=== PATIENT | male | born 1955 | race Caucasian/White ===

== ENCOUNTER 2017-06-18 14:17 | Inpatient (IN) | payer BC ==
[~2017-06-18] VITALS: Ht 182.9 cm; Wt 115.1 kg
[2017-06-18] VITALS (8 sets, daily range): BP systolic 113–128; BP diastolic 59–88
[2017-06-18] MEDS: HEPARIN SOD (PORCINE) 5000 UNITS/ML VIAL SC SCH ×2 (14:00→22:00)
[2017-06-18] MEDS ORDERED: NS 1,000 ML IV SCH (14:38)
[2017-06-18] MEDS ORDERED: ASPIRIN 81 MG CHEW TABLET PO ONE (14:45)
[2017-06-18 15:01] LABS: BASO % 0.4 % (0.0-1.0); EOS # 0.1 K/mm3 (0.0-0.50); EOS % 0.8 % (0.0-3.0); LARGE UNSTAINED CELL # 0.1 K/mm3 (0.0-0.4); LARGE UNSTAINED CELL % 1.2 % (0.0-4.0); LYMPH # 1.7 K/mm3 (1.5-4.5); LYMPH % 20.5 % (24.0-44.0); MEAN CORPUSCULAR HEMOGLOBIN 33.9 pg (27.0-33.0); MEAN CORPUSCULAR HGB CONC 33.9 g/dl (32.0-36.5); MEAN CORPUSCULAR VOLUME 100.2 fl (80.0-96.0); MONO # 0.5 K/mm3 (0.0-0.8); MONO % 5.9 % (0.0-5.0); NEUTROPHILS # 5.5 K/mm3 (1.8-7.7); NEUTROPHILS % 71.2 % (36.0-66.0); PLATELET COUNT, AUTOMATED 143 k/mm3 (150-450); RED CELL DISTRIBUTION WIDTH 13.5 % (11.5-14.5); WHITE BLOOD COUNT 7.8 K/mm3 (4.0-10.0)
[2017-06-18 15:05] LABS: INR 1.07
[2017-06-18 15:34] LABS: ALBUMIN 3.2 GM/DL (3.2-5.2); ALBUMIN/GLOBULIN RATIO 1.45 (1.00-1.93); BILIRUBIN,DIRECT 0.4 MG/DL (0.0-0.2); BILIRUBIN,TOTAL 1.2 MG/DL (0.2-1.0); CALCIUM LEVEL 8.2 MG/DL (8.8-10.2); CREATININE FOR GFR 1.34 MG/DL (0.70-1.30); GLOMERULAR FILTRATION RATE 57.3 (>49); POTASSIUM SERUM 4.2 MEQ/L (3.5-5.1); TOTAL PROTEIN 5.4 GM/DL (6.4-8.2)
[2017-06-18 16:14] LABS: MAGNESIUM LEVEL 2.4 MG/DL (1.8-2.4)
--- NOTE | 2017-06-18 17:05 | HPEPDOC ---
Medical History and Physical Date of Admission 06/18/17 History and Physical PRIMARY CARE PROVIDER: None ATTENDING: Dr. Yudi Oliveira CHIEF COMPLAINT: Shortness of breath HISTORY OF PRESENT ILLNESS: This is a 62-year-old male no significant past medical history has not seen a physician in over 10 years who presents to the urgent care center complaining of shortness of breath, found to have new onset atrial fibrillation with RVR HR 130s to 150s. Patient states he's been getting progressively short of breath with increased lower extremity edema over the past week. States he also has orthopnea. No PND. Patient denies chest pain/palpitations. In the ED patient was found to have atrial fibrillation with rapid ventricular rate, given a Cardizem IV followed by by mouth. His heart rate is better controlled this point. Blood pressure stable. Oxygenating well. PAST MEDICAL HISTORY: As per HPI PAST SURGICAL HISTORY: Hernia repair SOCIAL HISTORY: Occasionally smokes tobacco and drinks alcohol. Occasionally smokes marijuana. FAMILY HISTORY: M - CVA ALLERGIES: Please see below. REVIEW OF SYSTEMS: HEENT: Denies sore throat/headache CARDIOVASCULAR: Denies chest pain/palpitations RESPIRATORY: + shortness of breath. No cough GASTROINTESTINAL: denies nausea/vomiting GENITOURINARY: Denies dysuria/urinary urgency. MUSCULOSKELETAL: Denies myalgias/arthralgias NEUROLOGICAL: Denies any focal weakness HOME MEDICATIONS: Please see below. PHYSICAL EXAMINATION: Vitals: (see below) General: No acute distress, laying comfortably in bed. HEENT: Moist mucous membranes. Neck: Mild JVD. No lymphadenopathy Cardiac: Irregularly irregular, No murmurs Pulm: Diminished breath sounds at the bases b/l. No wheezing, rhonchi Abd: NT/ND + BS Ext: 2+ pitting edema BLE. No cyanosis. Distal pulses intact. LABORATORY DATA: See below. IMAGING: CXR 06/18/17 Impression: Small right pleural effusion. Borderline cardiac size. MICROBIOLOGY: Please see below. ASSESSMENT/PLAN: 1. New-onset Atrial fibrillation with rapid ventricular rate. At this point CHADSVASc is 0. Echocardiogram pending. Status post Cardizem IV and by mouth. Heart rate is controlled at this point. Recent denies any chest pain/ palpitations. We will start metoprolol pending evaluation of ejection fraction. Aspirin 325 daily for now. 2. Acute Decompensated congestive heart failure - we'll diurese with Lasix IV twice a day. Echo pending. Cardiac enzymes will be monitored. Questionable systolic versus diastolic. Consider cardiology consultation if no significant improvement by tomorrow. 3. Lower extremity edema- likely secondary to decompensated heart failure. We will rule out DVT with lower extremity ultrasound. 4. Transaminitis- no abdominal pain. We'll order abdominal ultrasound. Hepatitis panel. Will need outpatient follow-up. Trend LFTs. ? Liver congestion versus QUEEN 5. Elevated creatinine- ? Baseline as patient has not been seen by a physician in over 10 years. Continue to monitor with diuresis. 6. Prediabetes with obesity- will need weight loss counseling prior to discharge. 7. Will need outpatient sleep study to rule out obstructive sleep apnea. DVT prophylaxis- heparin subcutaneous Patient will need a PCP prior to discharge. Vital Signs Vital Signs Date Time Temp Pulse Resp B/P (MAP) Pulse Ox O2 Delivery O2 Flow Rate FiO2 06/18/17 16:17 87 94 06/18/17 16:15 110/75 (87) 06/18/17 15:01 Room Air 94 06/18/17 14:18 97.0 20 Laboratory Data Labs 24H Laboratory Tests 2 06/18/17 14:44: White Blood Count 7.8, Red Blood Count 4.72, Hemoglobin 16.0, Hematocrit 47.3, Mean Corpuscular Volume 100.2H, Mean Corpuscular Hemoglobin 33.9H, Mean Corpuscular Hemoglobin Concent 33.9, Red Cell Distribution Width 13.5, Platelet Count 143L, Neutrophils (%) (Auto) 71.2H, Lymphocytes (%) (Auto) 20.5L, Monocytes (%) (Auto) 5.9H, Eosinophils (%) (Auto) 0.8, Basophils (%) (Auto) 0.4 , Neutrophils # (Auto) 5.5, Lymphocytes # (Auto) 1.7, Monocytes # (Auto) 0.5, Eosinophils # (Auto) 0.1, Basophils # (Auto) 0.0, Large Unclassified Cells % 1.2 , Large Unclassified Cells # 0.1, Prothrombin Time 14.1, Prothromb Time International Ratio 1.07, Anion Gap 6L, Glomerular Filtration Rate 57.3, Estimated Mean Plasma Glucose 128H, Hemoglobin A1c 6.1, Calcium Level 8.2L, Magnesium Level 2.4, Aspartate Amino Transf (AST/SGOT) 53H, Alanine Aminotransferase (ALT/SGPT) 199H, Alkaline Phosphatase 63, Total Bilirubin 1.2H , Direct Bilirubin 0.4H, Total Creatine Kinase 53, Creatine Kinase MB 1.6, Creatine Kinase MB Relative Index 3.01, Troponin I 0.02, B-Type Natriuretic Peptide 251H, Total Protein 5.4L, Albumin 3.2, Albumin/Globulin Ratio 1.45, Thyroid Stimulating Hormone (TSH) 1.980 CBC/BMP Laboratory Tests 06/18/17 14:44 Red Blood Count 4.72, Mean Corpuscular Volume 100.2 H, Mean Corpuscular Hemoglobin 33.9 H, Mean Corpuscular Hemoglobin Concent 33.9, Red Cell Distribution Width 13.5, Neutrophils (%) (Auto) 71.2 H, Lymphocytes (%) (Auto) 20.5 L, Monocytes (%) (Auto) 5.9 H, Eosinophils (%) (Auto) 0.8, Basophils (%) ( Auto) 0.4, Neutrophils # (Auto) 5.5, Lymphocytes # (Auto) 1.7, Monocytes # (Auto ) 0.5, Eosinophils # (Auto) 0.1, Basophils # (Auto) 0.0 Home Medications Scheduled Aspirin (Aspirin) 325 Mg Tab, 325 MG PO DAILY Atenolol (Atenolol) 50 Mg Tab, 50 MG PO BID Furosemide (Lasix) 20 Mg Tab, 20 MG PO DAILY Simvastatin - High Dose (Zocor) 40 Mg Tab, 40 MG PO QHS Allergies Coded Allergies: No Known Allergies (Unverified , 06/18/17) AGUILA RODRIGUEZ MD Jun 18, 2017 17:05
--- NOTE | 2017-06-18 18:02 | REP ---
BILATERAL LOWER EXTREMITY DOPPLER VENOUS ULTRASOUND: Comparison: None. Clinical history: Lower extremity swelling, evaluate for DVT. Technique: The deep venous system of the bilateral lower extremities is evaluated with levi scale imaging, compression ultrasound, color imaging and duplex Doppler interrogation. Examination from the groin through the popliteal fossa into the proximal calf. Findings: There is full compressibility from the common femoral vein in the inguinal region through the popliteal vein on both sides. Color imaging confirms patency throughout the course of the deep venous system. There is respiratory variation and augmented flow at all levels. Impression: 1. No Doppler venous ultrasound evidence of DVT in the bilateral lower extremities. Signed by Luis Hanks MD 06/18/2017 05:53 P
[2017-06-18] MEDS ORDERED: METOPROLOL 5 MG/5 ML VIAL IV STA (19:25)
[2017-06-18] MEDS ORDERED: DIGOXIN INJ 0.5 MG/2 ML AMP (J1160) IV STA (19:27)
[2017-06-18] MEDS: METOPROLOL TART 25 MG TABLET PO SCH (19:48)
[2017-06-19] VITALS (7 sets, daily range): BP systolic 112–138; BP diastolic 56–95
[2017-06-19] MEDS: METOPROLOL TART 25 MG TABLET PO SCH ×2 (00:22→07:44)
[2017-06-19 05:07] LABS: MEAN CORPUSCULAR HGB CONC 32.6 g/dl (32.0-36.5); MEAN CORPUSCULAR VOLUME 101.2 fl (80.0-96.0); RED CELL DISTRIBUTION WIDTH 13.5 % (11.5-14.5); WHITE BLOOD COUNT 7.8 K/mm3 (4.0-10.0)
[2017-06-19 05:33] LABS: ALBUMIN 3.1 GM/DL (3.2-5.2); ALBUMIN/GLOBULIN RATIO 1.35 (1.00-1.93); ALKALINE PHOSPHATASE 66 U/L (45-117); ALT/SGPT 177 U/L (12-78); ANION GAP 8 MEQ/L (8-16); AST/SGOT 46 U/L (15-37); BILIRUBIN,TOTAL 1.1 MG/DL (0.2-1.0); BLOOD UREA NITROGEN 22 MG/DL (7-18); CALCIUM LEVEL 7.9 MG/DL (8.8-10.2); CARBON DIOXIDE LEVEL 25 MEQ/L (21-32); CHLORIDE LEVEL 106 MEQ/L (98-107); CREATININE FOR GFR 1.19 MG/DL (0.70-1.30); GLOMERULAR FILTRATION RATE > 60.0 (>49); GLUCOSE, FASTING 124 MG/DL (80-110); MAGNESIUM LEVEL 2.4 MG/DL (1.8-2.4); POTASSIUM SERUM 4.2 MEQ/L (3.5-5.1); SODIUM LEVEL 139 MEQ/L (136-145); TOTAL PROTEIN 5.4 GM/DL (6.4-8.2)
[2017-06-19] MEDS: HEPARIN SOD (PORCINE) 5000 UNITS/ML VIAL SC SCH ×3 (06:00→20:52)
[2017-06-19 06:49] LABS: CHOLESTEROL LEVEL 135 MG/DL (<200); TRIGLYCERIDES LEVEL 92 MG/DL (<150)
--- NOTE | 2017-06-19 07:28 | REP ---
Clinical: Shortness of breath . Comparison: 06/18/2017 . Findings: The mediastinum and cardiac silhouette are stable and within normal limits for portable technique. The lung pepe are clear without acute consolidation, obvious effusion, or pneumothorax. Skeletal structures are intact. Impression: No acute cardiopulmonary process appreciated. Previously noted small right pleural effusion not visualized by current examination. Signed by Serjio Coley MD 06/19/2017 07:20 A
[2017-06-19] MEDS: FUROSEMIDE 40 MG/4 ML VIAL (J1940) IV SCH ×3 (08:59→20:51)
[2017-06-19] MEDS: ASPIRIN 325 MG TAB PO SCH (08:59)
[2017-06-19] MEDS ORDERED: METOPROLOL TART 25 MG TABLET PO SCH (09:00)
[2017-06-19] MEDS ORDERED: ASPI325T PO (09:30)
[2017-06-19] MEDS ORDERED: ATEN50TA2 PO (09:30)
[2017-06-19] MEDS ORDERED: ZOCO40TA PO (09:30)
[2017-06-19] MEDS ORDERED: LASI20TA PO (09:31)
[2017-06-19] MEDS: ATENOLOL 50 MG TAB PO SCH ×2 (09:39→20:52)
[2017-06-19] MEDS ORDERED: LEVALBUTEROL 1.25 MG/0.5 ML CONCENTRATE NEB NEB ONE (10:00)
[2017-06-19] MEDS ORDERED: LEVALBUTEROL 1.25 MG/0.5 ML CONCENTRATE NEB INH PRN (11:00)
--- NOTE | 2017-06-19 11:22 | ECGEPIP ---
Stationary ECG Study [facility] - ED Test Date: 2017-06-18 Pat Name: JOSH AMRR Department: Room: - Gender: M Inker Machine: magdy : 1955 Requested By: ROVERTO EVANS Order Number: [id number] Reading MD: Julia Osborne Measurements Intervals [place] Rate: 81 P: [place]: 0 QRS: -14 QRSD: 105 T: -33 QT: 363 QTc: 422 Interpretive Statements ATRIAL FIBRILLATION NONSPECIFIC ST & T-WAVE ABNORMALITY ABNORMAL RHYTHM ECG LOW VOLTAGE LIMB DECREASED RATE 05/29/17 Electronically Signed On 06-19-2017 11:22:16 EDT by Julia Osborne
--- NOTE | 2017-06-19 11:30 | ECGEPIP ---
Stationary ECG Study [facility] Test Date: 2017-06-19 Pat Name: JOSH MARR Department: Room: [place] [address] Gender: M Caustic Preparer: RAMEZ : 1955 Requested By: AGUILA RODRIGUEZ Order Number: [id number] Reading MD: Jones Murrieta Measurements Intervals [place] Rate: 77 P: [place]: 0 QRS: -7 QRSD: 117 T: 2 QT: 389 QTc: 442 Interpretive Statements ATRIAL FIBRILLATION MODERATE INTRAVENTRICULAR CONDUCTION DELAY Nonspecific ST-T wave abnormalities Low QRS complex voltage in the limb leads Electronically Signed On 06-19-2017 11:30:27 EDT by Jones Murrieta
[2017-06-19] MEDS: LEVALBUTEROL 1.25 MG/0.5 ML CONCENTRATE NEB INH SCH ×4 (13:00→23:35)
--- NOTE | 2017-06-19 19:07 | ECGEPIP ---
Stationary ECG Study [facility] - ED Test Date: 2017-06-18 Pat Name: JOSH MARR Department: Room: - Gender: M Senior Consumer Insights Consultant: magdy : 1955 Requested By: Sal Reynolds Order Number: [id number] Reading MD: Sal Bazan Measurements Intervals [place] Rate: 153 P: [place]: 0 QRS: -32 QRSD: 107 T: 0 QT: 310 QTc: 495 Interpretive Statements ATRIAL FIBRILLATION WITH RAPID VENTRICULAR RESPONSE LEFT AXIS DEVIATION MODERATE INTRAVENTRICULAR CONDUCTION DELAY MINIMAL ST DEPRESSION SIMILAR TO 06/18/17 Electronically Signed On 06-19-2017 19:07:15 EDT by Sal Bazan
--- NOTE | 2017-06-19 23:04 | ECHO ---
DATE OF PROCEDURE: 06/19/2017 REFERRING PHYSICIAN: Dr. Jose See INDICATION: Heart failure, unspecified. HEIGHT: 183 cm WEIGHT: 125 kg 2D MEASUREMENTS: Aortic root: 3.5 cm Left atrium: 4.3 cm Ventricular septum: 1.19 cm Posterior wall: 1.16 cm Left ventricle diastole: 6.1 cm LVOT: 2.4 cm Inferior vena cava: 2.7 cm with less than 50% respiratory variation. DOPPLER MEASUREMENTS: Aortic valve velocity: 77.5 cm/s LVOT velocity: 57.1 cm/s LVOT VTI: 8.9 cm Very mild mitral regurgitation. Mitral deceleration time: 158 ms Moderate tricuspid regurgitation. Estimated right ventricle systolic pressure: 48 mmHg assuming a right atrial pressure of 20 mmHg based on inferior vena cava plethora with reduced respiratory variation. DESCRIPTION OF PROCEDURE: Rhythm was atrial fibrillation with controlled ventricular response. No pericardial effusion. CONCLUSIONS: 1. Mildly dilated left ventricle with normal left ventricle (LV) wall thickness. Severe global LV hypokinesis with severe reduction in overall LV systolic function. Left ventricular ejection fraction (LVEF) 20% by visual estimate. Unable to adequately assess LV diastolic function in the setting of atrial fibrillation. 2. Mild left atrial dilatation. 3. Mild global hypokinesis of the right ventricle with mild reduction in overall right ventricular (RV) systolic function. Mild right atrial dilatation. 4. Suggestive of moderate elevation of estimated right ventricle systolic pressure (48 mmHg). 5. 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 6. Moderate tricuspid regurgitation with structurally normal appearing tricuspid leaflets.
[2017-06-20 03:08] VITALS: BP 110/64
[2017-06-20] MEDS: FUROSEMIDE 40 MG/4 ML VIAL (J1940) IV SCH ×4 (03:11→20:49)
[2017-06-20] MEDS: LEVALBUTEROL 1.25 MG/0.5 ML CONCENTRATE NEB INH SCH ×6 (03:14→23:53)
[2017-06-20 05:07] LABS: MEAN CORPUSCULAR HEMOGLOBIN 34.4 pg (27.0-33.0); MEAN CORPUSCULAR HGB CONC 34.1 g/dl (32.0-36.5); MEAN CORPUSCULAR VOLUME 100.7 fl (80.0-96.0); RED CELL DISTRIBUTION WIDTH 13.5 % (11.5-14.5); WHITE BLOOD COUNT 7.4 K/mm3 (4.0-10.0)
[2017-06-20 05:22] LABS: ALBUMIN 3.3 GM/DL (3.2-5.2); ALBUMIN/GLOBULIN RATIO 1.27 (1.00-1.93); CALCIUM LEVEL 8.2 MG/DL (8.8-10.2); CREATININE FOR GFR 1.35 MG/DL (0.70-1.30); GLOMERULAR FILTRATION RATE 56.8 (>49); MAGNESIUM LEVEL 2.3 MG/DL (1.8-2.4); POTASSIUM SERUM 3.8 MEQ/L (3.5-5.1); TOTAL PROTEIN 5.9 GM/DL (6.4-8.2)
--- NOTE | 2017-06-20 05:25 | IPN ---
DATE: 06/19/2017 SUBJECTIVE: The patient is seen and examined at the bedside. Chart has been reviewed. This morning the patient complains of dyspnea on exertion, increasing lower extremity edema unchanged from yesterday. No chest pressure, pain or tightness. No palpitations, lightheadedness or dizziness. On telemetry the patient remains in atrial fibrillation. Ventricular rate ranges from 75 to 146. OBJECTIVE: VITAL SIGNS: Temperature 98.6, pulse 85, respiratory rate 18, blood pressure 112/60, 94% on room air. GENERAL: The patient is awake, alert, and oriented times three, answering questions appropriately. No respiratory distress. No use of respiratory accessory muscles. Positive jugular venous distention. LUNGS: Diminished. Bilateral crackles at the bases. HEART: S1, S2. Irregularly irregular. ABDOMEN: Obese, soft, nontender, nondistended. EXTREMITIES: 2+ pitting edema bilateral lower extremities to the sacrum. LABORATORY DATA: White count 7.8, hemoglobin 15, hematocrit 47, platelet count 147. Sodium 139, potassium 4.2, chloride 106, bicarbonate 25, BUN 22, creatinine 1.19, glucose of 124. A1c is 6.1, calcium 7.9, magnesium 2.4. Total bilirubin 1.1, AST 46, ALT 177, alkaline phosphatase 66. Total CK 31, troponin 0.02. BNP is 251. Total protein 5.4, albumin 3.1. TSH 1.9. IMAGING: Chest x-ray: No acute cardiopulmonary process. Small right pleural effusion not visualized by current examination. Venous Doppler of bilateral lower extremities shows no deep venous thrombosis (DVT). ASSESSMENT AND PLAN: This is a 62-year-old male who has not seen a physician in over 10 years, who presented to urgent care with complaints of shortness of breath, was found to have new-onset atrial fibrillation, heart rate of 150, admitted for atrial fibrillation and decompensated heart failure new onset. CURRENT ISSUES: 1. New onset atrial fibrillation with rapid ventricular response. CHADS score is one. Echocardiogram is pending. Status post intravenous (IV) Cardizem, digoxin currently and metoprolol every six hours changed to atenolol 50 twice a day and aspirin 325 daily. 2. Acute decompensated congestive heart failure (CHF) secondary to new onset atrial fibrillation. Continue diuresis, Lasix, strict intake and output, daily weights and fluid restriction. Cardiac rehabilitation. Await echocardiogram report. Check lipid panel. Start on statin. Patient will need evaluation for ischemic heart disease as outpatient with stress test or coronary angiogram. Referral to cardiology. 3. Lower extremity edema secondary to decompensated heart failure. Unknown ejection fraction. Rule out DVT by ultrasound which with both negative on both extremities. 4. Congestive hepatopathy. Abnormal liver function tests secondary to congestive heart failure, decompensated. Hepatitis serology is pending. 5. Prediabetic with obesity. Weight loss and nutrition consult. Rule out sleep apnea with sleep study as outpatient.
[2017-06-20] MEDS: HEPARIN SOD (PORCINE) 5000 UNITS/ML VIAL SC SCH ×3 (05:27→14:14)
[2017-06-20 07:25] VITALS: BP 122/82
[2017-06-20] MEDS: ASPIRIN 325 MG TAB PO SCH (09:13)
[2017-06-20] MEDS: ATENOLOL 50 MG TAB PO SCH (09:14)
[2017-06-20 12:00] VITALS: BP 130/60
[2017-06-20 16:00] VITALS: BP 118/76
[2017-06-20] MEDS ORDERED: METOPROLOL TART 25 MG TABLET PO ONE (16:45)
--- NOTE | 2017-06-20 17:06 | ECGEPIP ---
Stationary ECG Study [facility] Test Date: 2017-06-20 Pat Name: JOSH MARR Department: Room: [place] [address] Gender: M Counseling Specialist: : 1955 Requested By: STEPHANIE Ball Order Number: [id number] Reading MD: Jones Murrieta Measurements Intervals [place] Rate: 91 P: [place]: 0 QRS: -30 QRSD: 116 T: -35 QT: 358 QTc: 441 Interpretive Statements ATRIAL FIBRILLATION MODERATE INTRAVENTRICULAR CONDUCTION DELAY NONSPECIFIC ST & T-WAVE ABNORMALITY Similar to tracing done 06-19-17 Electronically Signed On 06-20-2017 17:06:31 EDT by Jones Murrieta
[2017-06-20 17:31] LABS: FOLATE 20.4 NG/ML
[2017-06-20] MEDS: METOPROLOL 5 MG/5 ML VIAL IV PRN ×2 (18:06→18:40)
[2017-06-20 20:00] VITALS: BP 100/72
[2017-06-20] MEDS ORDERED: DIGOXIN INJ 0.5 MG/2 ML AMP (J1160) IV STA (20:21)
[2017-06-20] MEDS: APIXABAN 5 MG TAB (ELIQUIS) PO SCH (21:27)
[2017-06-20] MEDS: METOPROLOL TART 25 MG TABLET PO SCH (21:28)
[2017-06-21] VITALS (8 sets, daily range): BP systolic 101–132; BP diastolic 60–85
--- NOTE | 2017-06-21 02:04 | CR ---
DATE OF CONSULTATION: 06/20/2017 REFERRING PROVIDER: Yudi Oliveira MD. REASON FOR CONSULTATION: Congestive heart failure. Mr. Wilson Nuñez was admitted on 06/18/2017 with decompensated congestive heart failure and atrial fibrillation with a rapid ventricular rate. Patient over the course of many weeks had developed increasing bilateral pedal edema, shortness of breath, weight gain, orthopnea, and paroxysmal nocturnal dyspnea (PND). He was found by his primary, which he has started to see, to have findings consistent with congestive heart failure and he was referred to the emergency room (ER) for further evaluation where he was admitted. Prior to that , he was not seeing any physician for over a decade. He denies any associated chest pain. He was having shortness of breath with activities, relieved with rest, orthopnea, and PND. He denies any bleeding. He has no cough or hemoptysis or fever. He has no focal manifestation. He was treated in the hospital with beta fitz, as well as diuretic/furosemide. He was supposed to be discharged, but he continues to be symptomatic with atrial fibrillation with a rapid ventricular rate and cardiology consult was called. His pedal edema, as well as his shortness of breath, and his weight have improved significantly. When I saw Mr. Wilson Nuñez, he was sitting in the bed in no acute distress at rest and he denies any sort of chest pain. He has no focal manifestation. He has no dysuria, polyuria, or hematuria. He has not been having any orthopnea. He has been ambulating around the nursing station. He denies any prior history of hypertension, hyperlipidemia, diabetes mellitus, significant valvular heart diseases, kidney disease, thyroid disorders, CVA. PAST SURGICAL HISTORY: Positive for hernia repair, otherwise unremarkable. CURRENT MEDICATIONS: - metoprolol tartrate that he had received one dose earlier today both by mouth and IV - Xopenex 1.25 mg every 4 hours via inhalation and every 1 hour as needed for shortness of breath and wheezing - aspirin 325 mg by mouth daily - atenolol 50 mg by mouth twice a day - Lasix 40 mg IV every 6 hours - heparin subcutaneously which he has been refusing FAMILY HISTORY: Positive for CVA. SOCIAL HISTORY: Patient lives with his girlfriend and he denies any smoking or ethyl alcohol (EtOH) abuse. 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 ALLERGIES: He has no known drug allergies. PHYSICAL EXAMINATION: The patient is alert and oriented, in no acute distress at rest. His vital signs when I saw him revealed a blood pressure of 100/72 with a pulse of 74, respirations 20, and his maximum temperature was 97.2 degrees Fahrenheit with an oxygen saturation of 99% on room air. Examination of the head, ears, eyes, nose and throat: Atraumatic. Neck is supple. No jugular venous distention (JVD) while sitting up in his bed. The lungs did not reveal any wheezing or crackles. The heart examination revealed irregularly irregular heart sounds without gallops. The point of maximal impulse (PMI) is displaced inferiorly and laterally. There is no rub. There is a systolic murmur grade 1-2 over 6 at the lower left sternal border and at the apex, some radiation to the axilla. Abdomen is soft, obese and nontender. Extremities reveal +1 bilateral lower leg edema. Neurological examination is negative for focal deficit. LABORATORIES: CBC done on 06/20/2017 revealed a WBC of 7.4, hemoglobin 16.3, hematocrit 48.4, and platelets 146,000. BMP on the same day revealed a sodium of 144, potassium 3.8, chloride 103, CO2 34, BUN 19, creatinine 1.35, GFR 56.8, fasting glucose 111, and calcium 8.2. Serum magnesium was 2.3. Liver enzymes reveal a total bilirubin of 1.0, AST 36, ALT 154, alkaline phosphatase 66, total protein 5.9, albumin 3.3. Lipid profile on 06/19 revealed a total cholesterol of 135, triglycerides 92, LDL 87.6, and total cholesterol/HDL ratio of 29. Serum troponin has been negative since hospitalization at 0.02. BUN and creatinine on 06/18/2017 on admission were 22 and 1.34 respectively. Serum TSH on admission was 1.89. Serum BNP was 255. PT on admission was 14.1 with an INR of 1.07. EKG on admission revealed atrial fibrillation at a ventricular rate of 153 beats per minute, left axis deviation, IVCD, and nonspecific ST-T abnormalities. Last electrocardiogram on 06/20/2017 also revealed atrial fibrillation, but with a heart rate of 91 beats per minute, IVCD, left axis deviation, and nonspecific ST-T abnormalities. Chest x-ray on 06/19/2017 revealed no acute cardiopulmonary disease process, but a small right pleural effusion. Doppler of the lower extremities on 06/18/2017 revealed no evidence of DVT. Echocardiogram on 06/19/[address] Patterson revealed an LVEF reported to be severely depressed and estimated at 20% with mildly dilated left ventricle, mildly dilated left atrium, mildly dilated left ventricle with findings consistent with moderate pulmonary hypertension and the inferior vena cava was dilated. There was moderate tricuspid regurgitation. IMPRESSION: 1. Decompensated congestive heart failure, newly diagnosed and seems to have responded with intravenous (IV) diuretic/furosemide and I will continue the same , but will need to monitor closely his BUN and creatinine and serum potassium. This may be tachycardia induced in view of his underlying atrial fibrillation, but we will need to rule out underlying coronary artery disease in adult patient , he will have a stress test, a pharmacological nuclear stress test. In the meantime, I will add an angiotensin-converting enzyme (MANE) inhibitor with ramipril/Altace. He will continue with the beta fitz/metoprolol. Will hold on spironolactone for now in view of his low blood pressure. This was discussed with him, he has agreed to be treated and be compliant with his medication and followup with his physicians. Low-salt diet was discussed with him and he will monitor his weight regularly. Upon discharge, I will see him as outpatient. He has manifested the desire to be discharged home by Friday and if he goes home, I will see him next Friday at the office. He will need a basic metabolic panel (BMP) prior to his next office visit in order to check his BUN and creatinine and serum potassium and this was discussed with him. 2. Atrial fibrillation, newly diagnosed and his heart rate is not quite under control, particularly with activities and he will be loaded with digoxin. He has not been receiving the heparin subcutaneously and it was discontinued. The aspirin was decreased and he was started on one of the novel oral anticoagulants (NOACs) with Eliquis/apixaban at 5 mg by mouth twice a day. He is well aware to be compliant with it in order to decrease his risk of thromboembolic event. It was a pleasure to participate in the care of Mr. Wilson Nuñez for his underlying cardiac condition. On 06/21, Dr. Vega will be seeing him and upon discharge, he will be seen at the office as an outpatient for further evaluation. Please do not hesitate to call if any question. MANSID
[2017-06-21] MEDS: LEVALBUTEROL 1.25 MG/0.5 ML CONCENTRATE NEB INH SCH ×6 (03:34→23:18)
[2017-06-21] MEDS: FUROSEMIDE 40 MG/4 ML VIAL (J1940) IV SCH ×3 (03:53→17:46)
[2017-06-21 05:25] LABS: MEAN CORPUSCULAR HEMOGLOBIN 33.8 pg (27.0-33.0); MEAN CORPUSCULAR HGB CONC 34.1 g/dl (32.0-36.5); RED CELL DISTRIBUTION WIDTH 13.4 % (11.5-14.5)
[2017-06-21 05:44] LABS: ALBUMIN 3.5 GM/DL (3.2-5.2); ALBUMIN/GLOBULIN RATIO 1.09 (1.00-1.93); ALKALINE PHOSPHATASE 78 U/L (45-117); ALT/SGPT 128 U/L (12-78); ANION GAP 8 MEQ/L (8-16); AST/SGOT 30 U/L (15-37); BILIRUBIN,TOTAL 1.2 MG/DL (0.2-1.0); BLOOD UREA NITROGEN 26 MG/DL (7-18); CALCIUM LEVEL 8.6 MG/DL (8.8-10.2); CARBON DIOXIDE LEVEL 34 MEQ/L (21-32); CHLORIDE LEVEL 99 MEQ/L (98-107); CREATININE FOR GFR 1.28 MG/DL (0.70-1.30); GLOMERULAR FILTRATION RATE > 60.0 (>49); GLUCOSE, FASTING 113 MG/DL (80-110); MAGNESIUM LEVEL 2.4 MG/DL (1.8-2.4); POTASSIUM SERUM 3.4 MEQ/L (3.5-5.1); SODIUM LEVEL 141 MEQ/L (136-145); TOTAL PROTEIN 6.7 GM/DL (6.4-8.2)
[2017-06-21] MEDS ORDERED: POTASSIUM CHLORIDE 10 MEQ SR TABLET PO ONE (06:15)
[2017-06-21] MEDS: METOPROLOL TART 25 MG TABLET PO SCH ×2 (06:18→13:20)
[2017-06-21] MEDS ORDERED: ELIQ5TAB PO (06:19)
[2017-06-21] MEDS: APIXABAN 5 MG TAB (ELIQUIS) PO SCH ×2 (09:21→20:50)
[2017-06-21] MEDS: RAMIPRIL 1.25 MG CAP PO SCH (09:21)
--- NOTE | 2017-06-21 11:02 | IPN ---
DATE: 06/20/2017 Patient seen and examined at the bedside. Chart has been reviewed. Overnight, the patient developed acute kidney injury due to overdiuresis with output of 6.175 liters, negative 5.7 liters. Current weight is 122.1 kg with admission weight of 126.5 kg. Telemetry was unremarkable showing rate controlled atrial fibrillation with episode of bradycardia with ventricular rate of 54 from previous heart rate of 142 to 146, atrial fibrillation. This morning, the patient states that he has no shortness of breath, able to ambulate comfortably without difficulty. He is able to sleep with one to two pillows right now without difficulty with paroxysmal nocturnal dyspnea. Lower extremity edema is decreased. He denies any chest pain, pressure, tightness, lightheadedness, dizziness or near syncope. He is eating well with no changes in appetite. Denies any productive cough. No dysuria, urgency, frequency or abdominal pain. Temperature 97.1, pulse 54, respiratory rate 18, blood pressure 122/82, 92% on room air. Generally, the patient is awake, alert, oriented times three, answering questions appropriately. No jugular venous distention, no thyromegaly. No cervical lymphadenopathy. Lungs are clear to auscultation. No wheezing, rales, or rhonchi. Heart: S1, S2, irregularly irregular. ABDOMEN: Soft, nontender, nondistended. EXTREMITIES: Positive 2+ pitting edema, decreased from yesterday. IMAGING STUDIES: Chest x-ray shows no acute cardiopulmonary process, small right pleural effusion , not visualized by current examination; Venous Dopplers lower extremities: No deep vein thrombosis (DVTs) bilateral lower extremities. ASSESSMENT AND PLAN: This is a 62-year-old male who has not seen a physician in over 10 years, presented to urgent care with complaint of shortness of breath, was found to have new onset atrial fibrillation, ventricular rate of 140s to 150s, admitted for atrial fibrillation with rapid ventricular response and decompensated congestive heart failure, which is new onset. CURRENT ISSUES: 1. New onset atrial fibrillation with rapid ventricular response. CHADS score is 1 with congestive heart failure. Patient's lipid panel is negative. No prior history of hypertension or cerebrovascular accident. Currently rate controlled with atenolol 50 mg twice a day and aspirin 325 mg daily. The patient did receive IV Cardizem, digoxin, metoprolol previously. Blood pressure appears to be well maintained. 2. Acute decompensated congestive heart failure, systolic dysfunction. Ejection fraction of 20%. Rule out ischemia. Cardiac markers are unremarkable. The patient has been diuresed overnight. Currently with net negative with acute kidney injury. Defer to Dr. Orellana regarding timing of evaluation for coronary vessels with either stress testing or coronary angiogram. The patient could not be started on an angiotensin-converting enzyme (MANE) inhibitor due to acute kidney injury. The patient's blood pressure is well maintained at this time. May start on low dose hydralazine and nitrate versus waiting for the kidneys to improve back to normal with low dose MANE inhibitor or angiotensin receptor fitz (ARB). At this time, the patient has been overdiuresed. Will hold off on daily dose of Lasix until kidneys are improved and may consider low dose spironolactone. Currently on aspirin, beta blockers. 3. Acute kidney injury secondary to overdiuresis. Avoid nephrotoxins. Renally dose all medications. Repeat basic metabolic panel in the morning. If improved, may consider starting on low dose MANE inhibitor due to systolic dysfunction with an ejection fraction of 20%. 4. Abnormal liver function test. Once the patient is more stable, may need evaluation with ultrasound of the liver but most likely due to congestive hepatopathy from congestive heart failure. 5. Tricuspid regurgitation. Defer to Dr. Orellana for further evaluation as an outpatient. DISPOSITION: Defer to Dr. Orellana regarding disposition in terms of euvolemia and followup in the office versus transferring to [place] for coronary angiogram. [facility]
--- NOTE | 2017-06-21 11:14 | IPN ---
DATE: 06/21/2017 Mr. Griffiths tells me that he is feeling much better, and he had no paroxysmal nocturnal dyspnea (PND) or orthopnea and was able to sleep last night without difficulty. He also accomplished significant diuresis and his peripheral edema is essentially completely gone. He denies any chest pain or sensation of palpitations. Blood pressure 132/60, heart rate has been in 90s. He is afebrile. Saturation is 95% on room air. His fluid balance yesterday was about 4700 mL negative. Weight is down to 116.7 kg, which is almost 10 kg decreased since admission. He is alert and oriented, appropriate. His jugular venous pulse (JVP) is not elevated. Lungs are clear to auscultation with good air movement. Heart exam reveals irregularly irregular rhythm. I do not appreciate any gallop, rub or murmur. Abdomen is soft. No tenderness. No hepatosplenomegaly. There is trace peripheral edema, mostly around the right ankle. Neurologically, he is intact. Laboratory campbell: Hemoglobin 17.9, hematocrit 52, platelet count 166,000. Basic metabolic panel: Potassium was 3.4, BUN 26, creatinine 1.3, glucose 113, bilirubin 1.2. ASSESSMENT AND PLAN: Mr. rGiffiths is a 62-year-old man who presented with acutely exacerbated congestive heart failure. He was found to be in atrial fibrillation (AFib) with rapid ventricular response and was found to have severe left ventricular systolic dysfunction. 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 His heart rate is reasonably well controlled at rest. I am going to change his Toprol to 100 mg long-acting preparation at night. Hopefully that will be sufficient to accomplish rate control and I will stay away from additional digoxin dosing. He also has been given a small dose of ramipril and that will be continued. I am going to reduce the dose of diuretics to just twice a day furosemide 40 mg IV because he is essentially euvolemic at this point. As far as the anticoagulation is concerned, he was started on apixaban and consequently aspirin was appropriately discontinued. I do believe that unless unpredictable events occur patient will be ready for discharge likely tomorrow. He already, apparently is scheduled to followup with Dr. Orellana.
[2017-06-21] MEDS ORDERED: METOPROLOL TART 25 MG TABLET PO ONE (14:00)
[2017-06-21] MEDS ORDERED: METOPROLOL SUCC (TopROL XL) 100MG *XL* TAB PO SCH (21:00)
[2017-06-22] VITALS: BP 107/62
[2017-06-22 04:00] VITALS: BP 105/62
[2017-06-22] MEDS: LEVALBUTEROL 1.25 MG/0.5 ML CONCENTRATE NEB INH SCH ×3 (04:01→11:09)
[2017-06-22 05:36] LABS: MEAN CORPUSCULAR HEMOGLOBIN 34.3 pg (27.0-33.0); MEAN CORPUSCULAR HGB CONC 34.7 g/dl (32.0-36.5); MEAN CORPUSCULAR VOLUME 98.8 fl (80.0-96.0); RED CELL DISTRIBUTION WIDTH 13.1 % (11.5-14.5); WHITE BLOOD COUNT 6.8 K/mm3 (4.0-10.0)
[2017-06-22 05:50] LABS: ALBUMIN 3.1 GM/DL (3.2-5.2); ALBUMIN/GLOBULIN RATIO 1.07 (1.00-1.93); ALKALINE PHOSPHATASE 65 U/L (45-117); ALT/SGPT 86 U/L (12-78); ANION GAP 8 MEQ/L (8-16); AST/SGOT 25 U/L (15-37); BILIRUBIN,TOTAL 1.2 MG/DL (0.2-1.0); BLOOD UREA NITROGEN 28 MG/DL (7-18); CALCIUM LEVEL 8.5 MG/DL (8.8-10.2); CARBON DIOXIDE LEVEL 31 MEQ/L (21-32); CHLORIDE LEVEL 104 MEQ/L (98-107); CREATININE FOR GFR 1.08 MG/DL (0.70-1.30); GLOMERULAR FILTRATION RATE > 60.0 (>49); GLUCOSE, FASTING 101 MG/DL (80-110); MAGNESIUM LEVEL 2.4 MG/DL (1.8-2.4); POTASSIUM SERUM 3.6 MEQ/L (3.5-5.1); SODIUM LEVEL 143 MEQ/L (136-145)
[2017-06-22] MEDS ORDERED: TOPR100T PO (06:12)
[2017-06-22] MEDS ORDERED: RAMI1.25 PO (06:12)
[2017-06-22] MEDS ORDERED: K-TA1TAB PO (06:42)
[2017-06-22 08:00] VITALS: BP 100/60
[2017-06-22 08:19] VITALS: BP 100/60
[2017-06-22] MEDS: APIXABAN 5 MG TAB (ELIQUIS) PO SCH (08:19)
[2017-06-22] MEDS: FUROSEMIDE 40 MG/4 ML VIAL (J1940) IV SCH (08:19)
[2017-06-22] MEDS: RAMIPRIL 1.25 MG CAP PO SCH (08:19)
--- NOTE | 2017-06-22 11:42 | IPN ---
DATE: 06/22/2017 Mr. Griffiths feels great and wants to go home. He slept well. When I entered the room, he was actually sleeping in completely flat position. Vital signs: Blood pressure 100/60, heart rate has been ranging from 60s to about 90s at rest, and he gets up to about 150 with ambulation. Saturation 94% on room air. He is afebrile. His fluid balance yesterday was about 2500 mL negative. Weight is down to 115.1 kg, which is about 11-1/2 kg drop since admission. His jugular venous pressure (JVP) is flat Lungs are clear to auscultation. Heart: Exam reveals irregularly irregular rhythm but no gallop, rub or murmur is appreciated. Abdomen is soft and nontender and there is no peripheral edema. Neurologically, he is intact. LABORATORY: His CBC is normal. Hemoglobin is 17.3, hematocrit 49.9 and platelet count 146,000. Basic metabolic panel is also normal. Potassium is 3.6, BUN 28, creatinine 1.1 for GFR more than 60 ASSESSMENT AND PLAN: Mr. Griffiths is a 62-year-old man who came with exacerbated congestive heart failure. He most likely has atrial fibrillation with secondary tachycardia-induced cardiomyopathy. As far as the management of atrial fibrillation is concerned, rate seems to be reasonably well-controlled on Toprol XL 100 mg at night. I will discharge him on this dose of medication. He will be anticoagulated with apixaban (2 weeks of samples given). As far as the heart failure is concerned, he appears to be euvolemic. I suspect that the principal intervention will be rate control, which hopefully will lead to recovery of left ventricular (LV) systolic function. He wants to go home, and I have no principal objections. Besides Toprol XL, he will be discharged on Lasix 20 mg daily and ramipril 1.25 mg daily. Followup will be with Dr. Orellana later this week. I instructed the patient to follow fluid restrictions, sodium restrictions and to avoid ETOH and strenuous exertion. DEL
--- NOTE | 2017-06-22 11:43 | ECGEPIP ---
Stationary ECG Study [facility] Test Date: 2017-06-22 Pat Name: JOSH MARR Department: Room: [place] [address] Gender: [id number] Analyst: : [id number] Requested By: Khushboo Vega Order Number: [id number] Reading MD: Jones Murrieta Measurements Intervals [place] Rate: 85 P: LA: 0 QRS: -42 QRSD: 113 T: -10 QT: 400 QTc: 476 Interpretive Statements ATRIAL FIBRILLATION MARKED LEFT AXIS DEVIATION SEPTAL Q waves of uncertain significance more notable than tracing done 06-20-17 MODERATE T-WAVE ABNORMALITY, CONSIDER LATERAL ISCHEMIA Electronically Signed On 06-22-2017 11:42:52 EDT by Jones Murrieta
[2017-06-22 12:00] VITALS: BP 110/60
--- NOTE | 2017-06-22 19:15 | DSES ---
DATE OF ADMISSION: 06/18/2017 DATE OF DISCHARGE: 06/22/2017 PRIMARY CARE PHYSICIAN: To be arranged by our hospitalist service. WALL TAPER HELPER DURING THIS ADMISSION: Dr. Jose Orellana, [facility]. PRIMARY DISCHARGE DIAGNOSES: 1. Atrial fibrillation with rapid ventricular response, new onset. 2. Acute decompensated congestive heart failure, systolic dysfunction, new onset. 3. Acute kidney injury secondary to overdiuresis. 4. Abnormal liver function tests most likely due to hepatopathy from congestive heart failure. 5. Moderate tricuspid regurgitation. 6. Macrocytic anemia. 7. Electrolyte abnormalities with low potassium. HOSPITAL COURSE: This is a 62-year-old male with no past medical history and has not seen a physician in over 10 years, presented to the emergency room with complaints of shortness of breath, palpitations, was found to have new onset atrial fibrillation with rapid ventricular response of 140-150 and was found to be in decompensated congestive heart failure with unknown ejection fraction. Patient was admitted for rate control and diuresis, was admitted to telemetry unit. Cardiac markers were unremarkable. EKG showed atrial fibrillation with rapid ventricular rate without ischemic changes. Patient was initially placed on aspirin 325 mg until echocardiogram could be performed. He was diuresed with Lasix 40 mg IV every 6 hours, net negative balance. Within 24 hours of negative 5.7 liters and negative 4.7 liters and negative 2.5 liters, admission weight of 126.5 kg and discharge weight of 115.1 kg dry weight. Patient's atrial fibrillation responded to metoprolol 25 mg every 6 hours changed to atenolol 50 mg twice a day with episodes of rapid ventricular response of 120-130. Patient was changed over to Toprol XL 100 mg at bedtime with improvement. Some episodes of low blood pressure, 100 systolic. He developed acute kidney injury with Lasix diuresis with a peak creatinine of 1.35, which improved to 1.08. Echocardiogram read by Dr. Jones Patterson showed ejection fraction 20%, moderate tricuspid regurgitation. Dr. Jose Orellana was consulted for determination of timing of stress test and coronary angiogram to evaluate for ischemic heart disease. Patient's cardiovascular risk factors were checked. He was not a diabetic. A1c was 6.1. Patient had normal lipid panel with LDL of 87.6, triglyceride of 92. Patient is discharged in stable condition for immediate followup, and his trust has established patient with Dr. Jose Orellana, [facility]. DISCHARGE MEDICATIONS: - apixaban 5 mg twice a day - Lasix 20 mg daily - metoprolol 100 mg at bedtime - Ramipril 1.25 mg daily - potassium chloride 20 mEq daily LABORATORIES ON DISCHARGE: White count 6.8, hemoglobin 17, hematocrit 49, platelet count 146. Sodium 143, potassium 3.6, chloride 104, bicarbonate 31, BUN 28, creatinine 1.08, glucose 101, calcium 8.5, magnesium 2.4. Total bilirubin 1.2, ALT 86, alkaline phosphatase 65, total protein 6, albumin 3.1. FOLLOWUP ISSUES: 1. New onset congestive heart failure, systolic dysfunction. Patient was started on Lasix and Ramipril. 2. To have a basic metabolic panel as outpatient. 3. To track potassium and creatinine to be faxed to Dr. Orellana. 4. Due to obesity, patient may benefit from obstructive sleep apnea test as outpatient.
--- NOTE | 2017-06-22 21:56 | IPN ---
DATE: 06/21/2017 The patient is seen and examined at bedside. Chart has been reviewed. Yesterday, the patient's heart rate increased to about 150. Additional load of metoprolol and intravenously and extra dose of 25 mg of by mouth metoprolol. Lasix was resumed with output of 5.8 liters, negative 4.7 liters overnight. Admission weight was 126.5 kg, current weight is 116.7 kg. She currently denies any chest pain, pressure or tightness, lightheadedness or dizziness. No fevers, chills or cough. Decreasing lower extremity edema. Urine output is adequate. Temperature 97.3, pulse 86, respiratory rate 19, blood pressure 111/60, oxygen saturation 95% on room air. LABORATORY DATA: White count 7, hemoglobin 17, hematocrit 52, platelet count 166, sodium (cut off), potassium 3.4, chloride 99, bicarbonate 34, BUN 26, creatine 1.28, glucose of 113, magnesium of 2.4. ASSESSMENT AND PLAN: This is a 62-year-old male who has not seen a physician in over 10 years presented to urgent care with complains of lower extremity edema and shortness of breath, was found to have new onset of atrial fibrillation with heart rate of 150 admitted for atrial fibrillation with rapid ventricular response and decompensated heart failure, which was new onset. Echocardiogram showed ejection fraction of 20%, moderate tricuspid regurgitation, venous Dopplers of bilateral lower extremities were negative for deep vein thrombosis (DVT). During the admission, the patient was placed on metoprolol and Lasix. CURRENT ISSUES: 1. Acute decompensated systolic congestive heart failure, new onset. The patient is currently on Lasix 40 mg IV every 6 hours. Developed acute kidney injury after 24 hours of admission to 1.38, resumed with normal creatine. Diuresing well. Strict input and output. Daily weights. 1.5 liter of fluid restriction. No added salt diet. Cardiac rehabilitation as outpatient. Dr. Orellana has been consulted to determine the timing of evaluation of coronary vessels to rule out ischemic heart disease. The patient's cardiovascular risk factors have been checked. He currently has not diabetes or hypertension or hyperlipidemia. The patient's aspirin and Zocor have been discontinued. He is currently on IV Lasix 40 mg IV every 6 hours and low-dose ramipril 1.[address] Vega will be seeing the patient today and will adjust medications for a discharge on Friday. 2. Atrial fibrillation with rapid ventricular rate improving. The patient did receive metoprolol intravenously, an addition dose of metoprolol. He currently is on Lopressor 25 mg every 8 hours and received one dose of digoxin 0.25 mg yesterday due to a soft blood pressure of 100/72. 3. Acute kidney injury resolved. 4. Electrolyte abnormalities with low potassium supplemented. 5. Obesity complicating current medical problems, rule out obstructive sleep apnea with a sleep study as outpatient.
[2017-06-24 13:22] LABS: PRETREATED FOLATE FOR RBCFOL 14.9 NG/ML
== END 2017-06-22 13:31 | disposition home or self-care (01) | DRG 201 ==
LOC: M ED 14:17 → M ED INP 16:36 → M PCU 17:36
PROVIDERS: ADMIT Internal Medicine; ATTEND General Practice
DX: I48.91 Unspecified atrial fibrillation (principal); I50.23 Acute on chronic systolic (congestive) heart failure; N17.9 Acute kidney failure, unspecified; I36.1 Nonrheumatic tricuspid (valve) insufficiency; E66.9 Obesity, unspecified; Z68.37 Body mass index [BMI] 37.0-37.9, adult; Z72.0 Tobacco use; R73.03 Prediabetes; R94.5 Abnormal results of liver function studies

== ENCOUNTER → 2017-06-18 | Outpatient (CLI) | payer BC ==
[~2017-06-18] MED LIST: ASPI325T PO; ATEN50TA2 PO; ELIQ5TAB PO; K-TA1TAB PO; LASI20TA PO; RAMI1.25 PO; TOPR100T PO; ZOCO40TA PO
[2017-06-18 11:29] LABS: BASO % 0.7 % (0.0-1.0); EOS # 0.1 K/mm3 (0.0-0.50); EOS % 1.1 % (0.0-3.0); LYMPH # 1.6 K/mm3 (1.5-4.5); LYMPH % 18.9 % (24.0-44.0); MEAN CORPUSCULAR HEMOGLOBIN 33.5 pg (27.0-33.0); MEAN CORPUSCULAR HGB CONC 33.3 g/dl (32.0-36.5); MEAN CORPUSCULAR VOLUME 100.6 fl (80.0-96.0); MONO # 0.5 K/mm3 (0.0-0.8); MONO % 6.6 % (0.0-5.0); NEUTROPHILS # 5.4 K/mm3 (1.8-7.7); RED CELL DISTRIBUTION WIDTH 13.6 % (11.5-14.5); WHITE BLOOD COUNT 7.6 K/mm3 (4.0-10.0)
[2017-06-18 12:05] LABS: ALBUMIN 3.2 GM/DL (3.2-5.2); ALBUMIN/GLOBULIN RATIO 1.1 (1.00-1.93); BILIRUBIN,TOTAL 1.2 MG/DL (0.2-1.0); CALCIUM LEVEL 8.1 MG/DL (8.8-10.2); CREATININE FOR GFR 1.43 MG/DL (0.70-1.30); GLOMERULAR FILTRATION RATE 53.2 (>49); POTASSIUM SERUM 4.5 MEQ/L (3.5-5.1); TOTAL PROTEIN 6.1 GM/DL (6.4-8.2)
--- NOTE | 2017-06-18 16:03 | REP ---
PA and lateral chest: There are no comparisons. There is effacement right costophrenic angle suggestive of a right pleural effusion. There are no focal infiltrates. There are no masses. Cardiac size is minimally enlarged. The mendoza, mediastinum, and bony thorax are unremarkable. 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 Impression: Small right pleural effusion. Borderline cardiac size. Signed by Levi De Jesus MD 06/18/2017 03:54 P
--- NOTE | 2017-06-18 17:26 | ECGEPIP ---
Stationary ECG Study [facility] Test Date: 2017-06-18 Pat Name: JOSH MARR Department: Room: - Gender: M Associate Director Regulatory Affairs: DEJAN : 1955 Requested By: Analia Duran RPA-C Order Number: [id number] Reading MD: Jones Murrieta Measurements Intervals [place] Rate: 138 P: [place]: 0 QRS: -26 QRSD: 122 T: -8 QT: 303 QTc: 460 Interpretive Statements ATRIAL FIBRILLATION WITH RAPID VENTRICULAR RESPONSE MODERATE INTRAVENTRICULAR CONDUCTION DELAY Delayed anterior R wave progression Comparison tracing not on file Electronically Signed On 06-18-2017 17:25:40 EDT by Jones Murrieta
== END ==
LOC: M LAB 10:57
PROVIDERS: ATTEND Physician Assistant Medical
DX: I50.20 Unspecified systolic (congestive) heart failure (principal)

== ENCOUNTER → 2017-06-30 | Outpatient (CLI) | payer BC ==
[2017-06-30 13:25] LABS: MEAN CORPUSCULAR HGB CONC 33.4 g/dl (32.0-36.5); MEAN CORPUSCULAR VOLUME 98.7 fl (80.0-96.0); RED CELL DISTRIBUTION WIDTH 12.9 % (11.5-14.5)
[2017-06-30 14:07] LABS: ANION GAP 7 MEQ/L (8-16); BLOOD UREA NITROGEN 22 MG/DL (7-18); CALCIUM LEVEL 8.6 MG/DL (8.8-10.2); CARBON DIOXIDE LEVEL 29 MEQ/L (21-32); CHLORIDE LEVEL 110 MEQ/L (98-107); CREATININE FOR GFR 1.28 MG/DL (0.70-1.30); GLOMERULAR FILTRATION RATE > 60.0 (>49); GLUCOSE, FASTING 93 MG/DL (80-110); SODIUM LEVEL 146 MEQ/L (136-145)
[2017-06-30 14:12] LABS: POTASSIUM SERUM 5.2 MEQ/L (3.5-5.1)
== END ==
LOC: M LAB 12:21
PROVIDERS: ATTEND Internal Medicine Cardiovascular Disease
DX: I48.91 Unspecified atrial fibrillation (principal); I50.9 Heart failure, unspecified; R06.02 Shortness of breath

== ENCOUNTER → 2017-07-25 | Outpatient (CLI) | payer BC ==
[2017-07-25 11:42] LABS: ANION GAP 11 MEQ/L (8-16); BLOOD UREA NITROGEN 17 MG/DL (7-18); CALCIUM LEVEL 8.6 MG/DL (8.8-10.2); CARBON DIOXIDE LEVEL 23 MEQ/L (21-32); CHLORIDE LEVEL 114 MEQ/L (98-107); CREATININE FOR GFR 1.13 MG/DL (0.70-1.30); DIGOXIN LEVEL 0.4 NG/ML (0.5-2.0); GLOMERULAR FILTRATION RATE > 60.0 (>49); GLUCOSE, FASTING 99 MG/DL (80-110); POTASSIUM SERUM 4.6 MEQ/L (3.5-5.1); SODIUM LEVEL 148 MEQ/L (136-145)
== END ==
LOC: M LAB 09:20
PROVIDERS: ATTEND Internal Medicine Cardiovascular Disease
DX: I48.91 Unspecified atrial fibrillation (principal); I42.9 Cardiomyopathy, unspecified

== ENCOUNTER → 2017-11-19 | Outpatient (CLI) | payer BC ==
[2017-11-19 13:21] LABS: ANION GAP 5 MEQ/L (8-16); BLOOD UREA NITROGEN 24 MG/DL (7-18); CALCIUM LEVEL 8.6 MG/DL (8.8-10.2); CARBON DIOXIDE LEVEL 31 MEQ/L (21-32); CHLORIDE LEVEL 110 MEQ/L (98-107); GLOMERULAR FILTRATION RATE > 60.0 (>49); GLUCOSE, FASTING 106 MG/DL (80-110); POTASSIUM SERUM 4.5 MEQ/L (3.5-5.1); SODIUM LEVEL 146 MEQ/L (136-145)
== END ==
LOC: M LAB 12:19
DX: E78.5 Hyperlipidemia, unspecified (principal)
CPT/HCPCS: 80048

== ENCOUNTER → 2018-08-17 | Outpatient (CLI) | payer BC ==
[2018-08-17 12:36] LABS: ANION GAP 5 MEQ/L (8-16); BLOOD UREA NITROGEN 22 MG/DL (7-18); CALCIUM LEVEL 8.7 MG/DL (8.8-10.2); CARBON DIOXIDE LEVEL 30 MEQ/L (21-32); CHLORIDE LEVEL 110 MEQ/L (98-107); DIGOXIN LEVEL 0.4 NG/ML (0.5-2.0); GLOMERULAR FILTRATION RATE > 60.0 (>49); GLUCOSE, FASTING 99 MG/DL (70-100); POTASSIUM SERUM 4.7 MEQ/L (3.5-5.1); SODIUM LEVEL 145 MEQ/L (136-145)
== END ==
LOC: M LAB 11:17
DX: I42.9 Cardiomyopathy, unspecified (principal); I10 Essential (primary) hypertension; I48.91 Unspecified atrial fibrillation
CPT/HCPCS: 80162

== ENCOUNTER → 2018-12-14 | Outpatient (REF) | payer BC ==
[~2018-12-14] MED LIST changes: +DIGO0.12 PO; +FURO20TA2 PO; -LASI20TA PO; +LASI20TA3 PO; +METO1TAB33 PO; -RAMI1.25 PO; +RAMI1CAP21 PO; +RAMI1CAP22 PO; +SPIR-10 PO; -TOPR100T PO; +TOPR100T13 PO; +TOPR50TA23 PO
[2018-12-14 12:04] LABS: HEMATOCRIT 51.6 % (42.0-52.0); HEMOGLOBIN 16.7 g/dl (13.5-17.5); MEAN CORPUSCULAR HEMOGLOBIN 31.9 pg (27.0-33.0); MEAN CORPUSCULAR HGB CONC 32.4 g/dl (32.0-36.5); MEAN CORPUSCULAR VOLUME 98.7 fl (80.0-96.0); PLATELET COUNT, AUTOMATED 181 10^3/uL (150-450); RED BLOOD COUNT 5.23 10^6/uL (4.30-6.10); WHITE BLOOD COUNT 8.9 10^3/uL (4.0-10.0)
[2018-12-14 12:07] LABS: ALT/SGPT 33 U/L (12-78); BILIRUBIN,TOTAL 0.5 MG/DL (0.2-1.0); BLOOD UREA NITROGEN 19 MG/DL (7-18); CALCIUM LEVEL 8.6 MG/DL (8.8-10.2); CARBON DIOXIDE LEVEL 29 MEQ/L (21-32); CHLORIDE LEVEL 109 MEQ/L (98-107); CREATININE FOR GFR 1.17 MG/DL (0.70-1.30); GLOMERULAR FILTRATION RATE > 60.0 (>49); GLUCOSE, FASTING 110 MG/DL (70-100); POTASSIUM SERUM 4.8 MEQ/L (3.5-5.1); SODIUM LEVEL 143 MEQ/L (136-145); TRIGLYCERIDES LEVEL 231 MG/DL (<150)
[2018-12-14 12:08] LABS: ALBUMIN 3.9 GM/DL (3.2-5.2); CHOLESTEROL LEVEL 215 MG/DL (<200); CHOLESTEROL RISK RATIO 5.375 (<5); HDL CHOLESTEROL 40 MG/DL (>40); LDL CHOLESTEROL 129 MG/DL (<100); NON-HDL-C 175 MG/DL; TOTAL PROTEIN 7.1 GM/DL (6.4-8.2)
[2018-12-14 12:39] LABS: HEMOGLOBIN A1c 6.8 %
== END ==
LOC: M SFHCPLAZ 09:50
PROVIDERS: ATTEND Family Medicine
DX: I50.9 Heart failure, unspecified (principal); Z13.1 Encounter for screening for diabetes mellitus

== ENCOUNTER 2018-12-16 20:36 | Inpatient (IN) | payer BC ==
[~2018-12-16] VITALS: Ht 180.3 cm; Wt 121.4 kg
[~2018-12-16 20:36] MED LIST changes: -DIGO0.12 PO; -FURO20TA2 PO; -METO1TAB33 PO; -RAMI1CAP22 PO; -SPIR-10 PO; -TOPR50TA23 PO
[2018-12-16 21:15] LABS: BASO # 0.1 10^3/uL (0.0-0.2); BASO % 0.8 % (0.0-1.0); EOS % 0.5 % (0.0-3.0); HEMATOCRIT 46.9 % (42.0-52.0); HEMOGLOBIN 15.9 g/dl (13.5-17.5); LYMPH # 1.7 10^3/uL (1.5-4.5); LYMPH % 22.3 % (24.0-44.0); MEAN CORPUSCULAR HEMOGLOBIN 32.4 pg (27.0-33.0); MEAN CORPUSCULAR HGB CONC 33.9 g/dl (32.0-36.5); MEAN CORPUSCULAR VOLUME 95.5 fl (80.0-96.0); MONO # 0.5 10^3/uL (0.0-0.8); MONO % 6.9 % (0.0-5.0); NEUTROPHILS # 5.3 10^3/uL (1.8-7.7); NEUTROPHILS % 69.2 % (36.0-66.0); PLATELET COUNT, AUTOMATED 154 10^3/uL (150-450); RED BLOOD COUNT 4.91 10^6/uL (4.30-6.10); WHITE BLOOD COUNT 7.7 10^3/uL (4.0-10.0)
--- NOTE | 2018-12-16 21:21 | REP ---
Clinical: Chest pain. Possible pacemaker malfunction. Comparison: 06/19/2017 . Technique: PA and lateral. Findings: The mediastinum and cardiac silhouette are normal. Single lead pacemaker in satisfactory position. The lung pepe are clear and without acute consolidation, effusion, or pneumothorax. The skeletal structures are intact and normal. Impression: 1. No acute cardiopulmonary process. Electronically Signed by Serjio Coley MD 12/16/2018 09:12 P
[2018-12-16 21:28] LABS: INR 1.05; PROTHROMBIN TIME 13.8 SECONDS (12.1-14.4)
[2018-12-16 21:29] LABS: PARTIAL THROMBOPLASTIN TIME 26.8 SECONDS (25.4-37.6)
[2018-12-16] MEDS: METOPROLOL 5 MG/5 ML VIAL IV SCH ×3 (21:31→21:58)
[2018-12-16 21:50] LABS: ALBUMIN 3.7 GM/DL (3.2-5.2); ALT/SGPT 28 U/L (12-78); BILIRUBIN,DIRECT 0.2 MG/DL (0.0-0.2); BILIRUBIN,TOTAL 0.6 MG/DL (0.2-1.0); BLOOD UREA NITROGEN 22 MG/DL (7-18); CALCIUM LEVEL 8.4 MG/DL (8.8-10.2); CARBON DIOXIDE LEVEL 22 MEQ/L (21-32); CHLORIDE LEVEL 109 MEQ/L (98-107); CK-MB VALUE MASS < 1.0 NG/ML (<3.6); CPK CREATINE PHOSPHOKINASE 49 U/L (39-308); CREATININE FOR GFR 1.27 MG/DL (0.70-1.30); DIGOXIN LEVEL 0.3 NG/ML (0.5-2.0); FREE T4 1.31 NG/DL (0.76-1.46); GLOMERULAR FILTRATION RATE > 60.0 (>49); GLUCOSE, FASTING 135 MG/DL (70-100); MAGNESIUM LEVEL 1.9 MG/DL (1.8-2.4); MB/CK RELATIVE INDEX 2.04 (< OR =4); PHOSPHORUS LEVEL 3.2 MG/DL (2.5-4.9); SODIUM LEVEL 143 MEQ/L (136-145); TOTAL PROTEIN 6.7 GM/DL (6.4-8.2); TROPONIN I < 0.02 NG/ML (< 0.10)
[2018-12-16] MEDS ORDERED: METOPROLOL SUCC (TopROL XL) 100MG *XL* TAB PO ONE (22:15)
[2018-12-16] MEDS ORDERED: DIGOXIN INJ 0.5 MG/2 ML AMP (J1160) IV ONE (23:15)
[2018-12-16] MEDS ORDERED: FURO20TA2 PO (23:22)
[2018-12-16] MEDS ORDERED: SPIR-10 PO (23:22)
[2018-12-16] MEDS ORDERED: DIGO0.12 PO (23:22)
[2018-12-16] MEDS ORDERED: METO1TAB33 PO (23:22)
[2018-12-16] MEDS ORDERED: ELIQ5TAB PO (23:22)
[2018-12-16] MEDS ORDERED: RAMI1CAP22 PO (23:22)
[2018-12-17] MEDS ORDERED: ACETAMINOPHEN TAB 650MG DOSE (2X325MG) PO PRN
[2018-12-17] MEDS ORDERED: ONDANSETRON 4MG/2ML VIAL (J2405) IV PRN
[2018-12-17] MEDS: APIXABAN 5 MG TAB (ELIQUIS) PO SCH ×3 (00:30→09:39)
[2018-12-17 00:53] VITALS: BP 136/66
--- NOTE | 2018-12-17 01:54 | HPEPDOC ---
[facility] Medical History & Physical Date of Admission Dec 16, 2018 Other Provider Admitting/dictating: Hernan Saldana M.D. Attending Physician: SALVADOR CORTES MD History and Physical CHIEF COMPLAINT: ICD discharges 5 times HISTORY OF PRESENT ILLNESS: Patient is a 63-year-old man with history of A. fib on anticoagulation and CHF with ICD placement done last year. He was in his usual state of health until sometime today when he received 5 ICD discharges during exercise. He was said to have been riding on his stationary bike at home. Other than the discharges. He denies any chest pain, no palpitations, no shortness of breath. No dizziness, no syncope or near-syncope. No headaches, no blurry visions. No nausea no vomiting, no fever, no chills No change in his bowel or urinary habits. He was evaluated in the emergency room with unremarkable. His: Exam unremarkable, labs ordered on low digoxin levels. Patient follows currently with Dr. Orellana as outpatient was also informed to and he recommended a loading dose of digoxin 0.25 g and to continue subsequently with his home medications. Hospitalist was called in for further evaluation and to admit patient. PAST MEDICAL HISTORY: Per [facility] PAST SURGICAL HISTORY: 1. Hernia repair. SOCIAL HISTORY: Marital status: . Resides in: Resides in [place] Occasional alcohol and smoking. Occasional marijuana use. Denies any street drug use. FAMILY HISTORY: Mother diagnosed with CVA ALLERGIES: Please see below. REVIEW OF SYSTEMS: 12 point review of systems negative other than that described in the body of HPI. HOME MEDICATIONS: Please see below. PHYSICAL EXAMINATION: VITAL SIGNS: Temperature 98, pulse 115, respiratory rate 18, blood pressure 100/63, pulse oximetry 95% on room air. GENERAL APPEARANCE: Middle aged man, lying calmly in bed, not in any apparent distress. He is not pale, anicteric and afebrile HEENT: Atraumatic. Neck: Supple. LUNGS: Clear to auscultation bilaterally. CARDIOVASCULAR: Pulse; irregularly irregular, S1 and 2 heard, no murmurs, rubs or gallops. ABDOMEN: Obese, soft, not tender, not distended. Bowel sounds normoactive. MUSCULOSKELETAL: Apparently within normal limits. EXTREMITIES: Very mild pedal edema, 2+ bilateral pedal pulses noted. NEUROLOGICAL: Awake, alert, oriented 3. PSYCHIATRIC: Normal affect LABORATORY DATA: See below. IMAGING: Chest x-ray: No cardiopulmonary process seen. EKG: A. fib with RVR, rate 115 MICROBIOLOGY: Please see below. ASSESSMENT: 63-year-old man with A. fib on anticoagulation, CHF, and ICD will received 5 ICD discharges while exercising today. Patient is evaluated with EKG showing A. fib with RVR with attempts at rate control in the emergency room, labs grossly unremarkable except for low digoxin levels. DIAGNOSES: 1. ICD discharge. 2. A. fib with RVR . PLAN: 1. I will admit patient to the PCU under care of Dr. Cortes 2. A. fib with RVR: We will continue anticoagulation, and we will resume patient's digoxin and metoprolol. Dr. Orellana will see patient in the morning. Will continue cardiac monitoring. 3. ICD discharge. Patient currently asymptomatic at this time. Patient to be seen by Dr. Orellana. Possibly may have ICD interrogated. 4. Dating May consider checking digoxin level in the morning. 5. GI prophylaxis with pantoprazole. 6. DVT prophylaxis with anticoagulation as per home medication. 7. Further management will be per patient's clinical course. Vital Signs Vital Signs Date Time Temp Pulse Resp B/P (MAP) Pulse Ox O2 Delivery O2 Flow Rate FiO2 12/17/18 00:53 97.5 120 18 136/66 (89) 95 Room Air Laboratory Data Labs 24H Laboratory Tests 2 12/16/18 21:04: Immature Granulocyte % (Auto) 0.3, White Blood Count 7.7, Red Blood Count 4.91, Hemoglobin 15.9, Hematocrit 46.9, Mean Corpuscular Volume 95.5, Mean Corpuscular Hemoglobin 32.4, Mean Corpuscular Hemoglobin Concent 33.9, Red Cell Distribution Width 12.5, Platelet Count 154, Neutrophils (%) (Auto) 69.2H, Lymphocytes (%) (Auto) 22.3L, Monocytes (%) (Auto) 6.9H, Eosinophils (%) (Auto) 0.5, Basophils (%) (Auto) 0.8, Neutrophils # (Auto) 5.3, Lymphocytes # (Auto) 1.7, Monocytes # (Auto) 0.5, Eosinophils # (Auto) 0.0, Basophils # (Auto) 0.1, Nucleated Red Blood Cells % (auto) 0.0, Prothrombin Time 13.8, Prothromb Time International Ratio 1.05, Activated Partial Thromboplast Time 26.8, Anion Gap 12, Glomerular Filtration Rate > 60.0, Calcium Level 8.4L, Phosphorus Level 3.2, Magnesium Level 1.9, Aspartate Amino Transf (AST/SGOT) 18, Alanine Aminotransferase (ALT/SGPT) 28, Alkaline Phosphatase 68, Total Bilirubin 0.6, Direct Bilirubin 0.2, Total Creatine Kinase 49, Creatine Kinase MB < 1.0, Creatine Kinase MB Relative Index 2.04, Troponin I < 0.02, Total Protein 6.7, Albumin 3.7, Albumin/Globulin Ratio 1.23, Thyroid Stimulating Hormone (TSH) 4.010H, Free Thyroxine 1.31, Digoxin Level 0.3L CBC/BMP Laboratory Tests 12/16/18 21:04 Red Blood Count 4.91, Mean Corpuscular Volume 95.5, Mean Corpuscular Hemoglobin 32.4, Mean Corpuscular Hemoglobin Concent 33.9, Red Cell Distribution Width 12.5, Neutrophils (%) (Auto) 69.2 H, Lymphocytes (%) (Auto) 22.3 L, Monocytes (%) (Auto) 6.9 H, Eosinophils (%) (Auto) 0.5, Basophils (%) (Auto) 0.8, Neutrophils # (Auto) 5.3, Lymphocytes # (Auto) 1.7, Monocytes # (Auto) 0.5, Eosinophils # (Auto) 0.0, Basophils # (Auto) 0.1 Home Medications Scheduled (Digoxin) 125 Mcg Tab, 125 MCG PO QHS Apixaban Base (Eliquis) 5 Mg Tab, 5 MG PO BID Furosemide (Furosemide) 20 Mg Tab, 20 MG PO DAILY Metoprolol Succinate (Metoprolol Succinate ER) 100 Mg Tab, 100 MG PO QHS Ramipril (Ramipril) 2.5 Mg Cap, 2.5 MG PO DAILY Spironolactone (Spironolactone) 25 Mg Tab, 12.5 MG PO DAILY Allergies Coded Allergies: No Known Allergies (Unverified , 06/18/17) HERNAN SALDANA MD Dec 17, 2018 01:54
[2018-12-17 04:00] VITALS: BP 117/76
[2018-12-17 04:42] LABS: HEMATOCRIT 43.8 % (42.0-52.0); HEMOGLOBIN 14.8 g/dl (13.5-17.5); MEAN CORPUSCULAR HEMOGLOBIN 31.8 pg (27.0-33.0); MEAN CORPUSCULAR HGB CONC 33.8 g/dl (32.0-36.5); MEAN CORPUSCULAR VOLUME 94.2 fl (80.0-96.0); PLATELET COUNT, AUTOMATED 161 10^3/uL (150-450); RED BLOOD COUNT 4.65 10^6/uL (4.30-6.10); WHITE BLOOD COUNT 9.1 10^3/uL (4.0-10.0)
[2018-12-17 04:57] LABS: BLOOD UREA NITROGEN 19 MG/DL (7-18); CALCIUM LEVEL 8.3 MG/DL (8.8-10.2); CARBON DIOXIDE LEVEL 29 MEQ/L (21-32); CHLORIDE LEVEL 105 MEQ/L (98-107); CREATININE FOR GFR 1.25 MG/DL (0.70-1.30); GLOMERULAR FILTRATION RATE > 60.0 (>49); GLUCOSE, FASTING 103 MG/DL (70-100); POTASSIUM SERUM 4.1 MEQ/L (3.5-5.1); SODIUM LEVEL 142 MEQ/L (136-145)
[2018-12-17 06:20] VITALS: BP 118/77
[2018-12-17 08:00] VITALS: BP 105/63
[2018-12-17] MEDS ORDERED: RAMIPRIL 1.25 MG CAP PO SCH (09:00)
[2018-12-17] MEDS ORDERED: FUROSEMIDE 20 MG TAB PO SCH (09:00)
[2018-12-17] MEDS ORDERED: SPIRONOLACTONE 12.5MG PER 1/2 TABLET PO SCH (09:00)
[2018-12-17 09:39] VITALS: BP 105/63
[2018-12-17 11:44] VITALS: BP 130/87
--- NOTE | 2018-12-17 14:04 | DS.PDOC ---
Discharge Summary General Date of Admission Dec 17, 2018 at 00:00 Date of Discharge 12/17/18 Specialist/Consultants Involve: MARK CARMEN MD Discharge Summary PROCEDURES PERFORMED DURING STAY: [None]. ADMITTING DIAGNOSES: 1. AICD firing. 2. Rapid a-fib SECONDARY DIAGNOSES: 1. a-fib/RVR 2. Hx of CHF with severe systolic failure s/p AICD COMPLICATIONS/CHIEF COMPLAINT: A-Fib W/ Rapid Ventricular Response,Icd Discharge. HISTORY OF PRESENT ILLNESS: Patient is a 63-year-old man with history of A. fib on anticoagulation and CHF with severe systolic failure s/p AICD done last year. He was in his usual state of health until sometime today when he received 5 ICD discharges during exercise. He was said to have been riding on his stationary bike at home. Other than the discharges. He denies any chest pain, no palpitations, no shortness of breath. No dizziness, no syncope or near-syncope. No headaches, no blurry visions. No nausea no vomiting, no fever, no chills No change in his bowel or urinary habits. HOSPITAL COURSE: Patient admitted for further evaluation and treatment. Patient remained in a-fib, rate controlled. VSS. Patient seen and evaluated by cardiology Dr. Carmen. Discussed with Dr. Carmen, determined AICD firing secondary to rapid a-fib. Recommendations for discharge home and outpatient follow up. Increased Toprol XL to 50 qam and continue with 100 qpm. DISCHARGE MEDICATIONS: Please see below. ALLERGIES: Please see below. PHYSICAL EXAMINATION ON DISCHARGE: VITAL SIGNS: Please see below. GENERAL: NAD, lying comfortably in bed HEENT: NC/AT, EOMI NECK: supple CARDIOVASCULAR EXAMINATION: +S1S2, RRR RESPIRATORY EXAMINATION: CTA B/L ABDOMINAL EXAMINATION: soft, obese, NT, +BS EXTREMITIES: no edema NEUROLOGICAL EXAMINATION: no gross deficits PSYCHIATRIC EXAMINATION: AAOx3 LABORATORY DATA: Please see below. ACTIVITY: As tolerated. DISCHARGE PLAN: Discharge home. ITEMS TO FOLLOWUP ON ON OUTPATIENT: 1. Follow up with PCP. 2. Follow up with cardiology as scheduled on in 1-5 days. DISCHARGE CONDITION: [Stable]. TIME SPENT ON DISCHARGE: Greater than 30 minutes. Vital Signs/I&Os Vital Signs Date Time Temp Pulse Resp B/P (MAP) Pulse Ox O2 Delivery O2 Flow Rate FiO2 12/17/18 11:44 99.1 62 18 130/87 (101) 96 Room Air I&O- Last 24 Hours up to 6 AM 12/17/18 06:00 Intake Total 120 ml Balance 120 ml Laboratory Data Labs 24H Laboratory Tests 2 12/16/18 21:04: Immature Granulocyte % (Auto) 0.3, White Blood Count 7.7, Red Blood Count 4.91, Hemoglobin 15.9, Hematocrit 46.9, Mean Corpuscular Volume 95.5, Mean Corpuscular Hemoglobin 32.4, Mean Corpuscular Hemoglobin Concent 33.9, Red Cell Distribution Width 12.5, Platelet Count 154, Neutrophils (%) (Auto) 69.2H, Lymphocytes (%) (Auto) 22.3L, Monocytes (%) (Auto) 6.9H, Eosinophils (%) (Auto) 0.5, Basophils (%) (Auto) 0.8, Neutrophils # (Auto) 5.3, Lymphocytes # (Auto) 1.7, Monocytes # (Auto) 0.5, Eosinophils # (Auto) 0.0, Basophils # (Auto) 0.1, Nucleated Red Blood Cells % (auto) 0.0, Prothrombin Time 13.8, Prothromb Time International Ratio 1.05, Activated Partial Thromboplast Time 26.8, Anion Gap 12, Glomerular Filtration Rate > 60.0, Calcium Level 8.4L, Phosphorus Level 3.2, Magnesium Level 1.9, Aspartate Amino Transf (AST/SGOT) 18, Alanine Aminotra nsferase (ALT/SGPT) 28, Alkaline Phosphatase 68, Total Bilirubin 0.6, Direct Bilirubin 0.2, Total Creatine Kinase 49, Creatine Kinase MB < 1.0, Creatine Kinase MB Relative Index 2.04, Troponin I < 0.02, Total Protein 6.7, Albumin 3.7, Albumin/Globulin Ratio 1.23, Thyroid Stimulating Hormone (TSH) 4.010H, Free Thyroxine 1.31, Digoxin Level 0.3L 12/17/18 04:10: Nucleated Red Blood Cells % (auto) 0.0, Anion Gap 8, Glomerular Filtration Rate > 60.0, Calcium Level 8.3L, Blood Urea Nitrogen 19H, Creatinine 1.25, Sodium Level 142, Potassium Level 4.1, Chloride Level 105, Carbon Dioxide Level 29 CBC/BMP Laboratory Tests 12/16/18 21:04 Red Blood Count 4.91, Mean Corpuscular Volume 95.5, Mean Corpuscular Hemoglobin 32.4, Mean Corpuscular Hemoglobin Concent 33.9, Red Cell Distribution Width 12.5, Neutrophils (%) (Auto) 69.2 H, Lymphocytes (%) (Auto) 22.3 L, Monocytes (%) (Auto) 6.9 H, Eosinophils (%) (Auto) 0.5, Basophils (%) (Auto) 0.8, Neutrophils # (Auto) 5.3, Lymphocytes # (Auto) 1.7, Monocytes # (Auto) 0.5, Eosinophils # (Auto) 0.0, Basophils # (Auto) 0.1 12/17/18 04:10 Red Blood Count 4.65, Mean Corpuscular Volume 94.2, Mean Corpuscular Hemoglobin 31.8, Mean Corpuscular Hemoglobin Concent 33.8, Red Cell Distribution Width 12.5, Calcium Level 8.3 L Discharge Medications Scheduled (Digoxin) 125 Mcg Tab, 125 MCG PO QHS, (Reported) Apixaban Base (Eliquis) 5 Mg Tab, 5 MG PO BID, (Reported) Furosemide (Furosemide) 20 Mg Tab, 20 MG PO DAILY, (Reported) Metoprolol Succinate (Metoprolol Succinate ER) 100 Mg Tab, 100 MG PO QHS, (Reported) Metoprolol Succinate (Toprol Xl) 50 Mg Tab, 1 TAB PO QAM Ramipril (Ramipril) 2.5 Mg Cap, 2.5 MG PO DAILY, (Reported) Spironolactone (Spironolactone) 25 Mg Tab, 12.5 MG PO DAILY, (Reported) Allergies Coded Allergies: No Known Allergies (Unverified , 06/18/17) SALVADOR CORTES MD Dec 17, 2018 14:04
[2018-12-17] MEDS ORDERED: TOPR50TA23 PO (14:06)
[2018-12-17] MEDS ORDERED: METOPROLOL SUCC (TopROL XL) 100MG *XL* TAB PO SCH (21:00)
[2018-12-17] MEDS ORDERED: DIGOXIN 0.125 MG TAB PO SCH (21:00)
--- NOTE | 2018-12-18 10:23 | ECGEPIP ---
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
== END 2018-12-17 15:00 | disposition home or self-care (01) | DRG 201 ==
LOC: M ED 20:36 → EDBD 20:36 → M ED INP 12-17 → M ICU 12-17 00:50 → M PCU 12-17 06:12
PROVIDERS: ADMIT Internal Medicine; ATTEND Internal Medicine
DX: I48.2 Chronic atrial fibrillation (principal); I50.22 Chronic systolic (congestive) heart failure; R00.0 Tachycardia, unspecified; Z79.01 Long term (current) use of anticoagulants; Z95.0 Presence of cardiac pacemaker; Z79.899 Other long term (current) drug therapy

== ENCOUNTER 2019-03-18 12:06 | Emergency (ER) | payer BC, MEDICAID, MEDICARE ==
[~2019-03-18] VITALS: Ht 182.9 cm; Wt 124.0 kg
[~2019-03-18 12:06] MED LIST changes: +ASPI-1 PO; -ASPI325T PO; +DIGO0.12 PO; +FURO20TA2 PO; +METO1TAB33 PO; +RAMI1CAP22 PO; +SPIR-10 PO; +TOPR100T PO; -TOPR100T13 PO; +TOPR50TA PO
[2019-03-18] MEDS ORDERED: AMPICILLIN SOD/SULBACTAM SOD 3 GM in D5W MINI-BAG PLUS 100 ML IV ONE (13:00)
[2019-03-18 14:00] LABS: HEMATOCRIT 47.7 % (42.0-52.0); HEMOGLOBIN 16.3 g/dl (13.5-17.5); MEAN CORPUSCULAR HEMOGLOBIN 32.7 pg (27.0-33.0); MEAN CORPUSCULAR HGB CONC 34.2 g/dl (32.0-36.5); MEAN CORPUSCULAR VOLUME 95.8 fl (80.0-96.0); PLATELET COUNT, AUTOMATED 175 10^3/uL (150-450); RED BLOOD COUNT 4.98 10^6/uL (4.30-6.10); WHITE BLOOD COUNT 11.8 10^3/uL (4.0-10.0)
[2019-03-18 14:31] LABS: CALCIUM LEVEL 8.5 MG/DL (8.8-10.2); CREATININE FOR GFR 1.34 MG/DL (0.70-1.30); GLOMERULAR FILTRATION RATE 57.1 (>49); POTASSIUM SERUM 4.4 MEQ/L (3.5-5.1)
[2019-03-18] MEDS ORDERED: AUGM875T28 PO (15:02)
[2019-03-18 15:07] VITALS: BP 126/76
== END 2019-03-18 15:24 | disposition home or self-care (01) ==
LOC: M ED 12:06
DX: L03.115 Cellulitis of right lower limb (principal); I11.9 Hypertensive heart disease without heart failure; Z79.899 Other long term (current) drug therapy; Z79.01 Long term (current) use of anticoagulants

== ENCOUNTER → 2019-04-02 | Outpatient (REF) | payer BC, MEDICARE ==
[~2019-04-02] MED LIST changes: +AUGM875T28 PO
[2019-04-02 18:27] LABS: CHOLESTEROL RISK RATIO 5.171 (<5)
[2019-04-02 19:00] LABS: HEMOGLOBIN A1c 6.2 %
== END ==
LOC: M SFHCPLAZ 11:42
PROVIDERS: ATTEND Family Medicine
DX: E78.2 Mixed hyperlipidemia (principal); E11.9 Type 2 diabetes mellitus without complications